=== PATIENT | male | born 1955 | race Two or more races ===

== ENCOUNTER 2017-07-16 19:02 | Emergency (ER) | payer MEDICAID ==
[~2017-07-16] VITALS: Ht 170.2 cm; Wt 72.1 kg
[2017-07-16 20:17] LABS: INR 1.01 (0.9-1.15); Partial Thromboplastin Time 27.1 sec (22.64-33.71)
[2017-07-16 20:35] LABS: Alanine Aminotransferase 24 U/L (16-61); Albumin 3.8 g/dL (3.4-5.0); Alkaline Phosphatase 97 U/L (45-117); Anion Gap 8 (5-15); Aspartate Aminotransferase 17 U/L (15-37); BUN/Creatinine Ratio 13.5; Bilirubin, Total 0.4 mg/dL (0.2-1.0); Blood Urea Nitrogen 12 mg/dL (7-18); Calcium 8.9 mg/dL (8.5-10.1); Carbon Dioxide 27 mmol/L (21-32); Chloride 105 mmol/L (98-107); GFR African American 112 mL/min; GFR Non-African American 92 mL/min; Glucose 95 mg/dL (74-106); Potassium 4.5 mmol/L (3.5-5.1); Sodium 140 mmol/L (136-145)
[2017-07-16 20:45] VITALS: BP 124/86
[2017-07-16 20:50] LABS: White Blood Cell 9.2 10^3/uL (4.4-10.8)
[2017-07-16 20:52] LABS: Basophils # (auto) 0 uL; Basophils % (auto) 0.4 % (0.0-2.0); Eosinophils # (auto) 0.2 uL; Eosinophils % (auto) 2.4 % (0.0-7.0); Hematocrit 52.5 % (41.0-53.0); Lymphocytes # (auto) 1.8 uL; Lymphocytes % (auto) 19.4 % (10.0-50.0); Mean Corpuscular Hemoglobin 31.5 pg (28.0-32.0); Mean Corpuscular Hgb Conc. 34.3 g/dL (32.0-36.0); Mean Corpuscular Volume 91.8 fL (80.0-100.0); Monocytes # (auto) 0.8 uL; Monocytes % (auto) 8.9 % (0.0-12.0); Neutrophils # (auto) 6.3 uL; Neutrophils % (auto) 68.9 % (37.0-80.0); Nucleated Red Blood Cells % 0.5 %; Platelet Count (auto) 223 10^3/uL (140-450); Red Blood Cells 5.72 10^6/uL (4.5-5.90); Red Cell Distribution Width 13.7 % (11.8-14.3)
== END 2017-07-17 00:20 | disposition home or self-care (01) ==
LOC: ER 19:02
DX: I10 Essential (primary) hypertension (principal); F17.210 Nicotine dependence, cigarettes, uncomplicated; Z01.818 Encounter for other preprocedural examination
CPT/HCPCS: 36415; 71046; 80053; 83735; 83880; 84484; 85025; 85610; 85730; 93005

== ENCOUNTER 2017-09-02 08:54 | Emergency (ER) | payer MEDICAID ==
[~2017-09-02] VITALS: Ht 170.2 cm; Wt 75.3 kg
[2017-09-02 09:43] LABS: Eosinophils # (auto) 0.1 uL; Eosinophils % (auto) 1.2 % (0.0-7.0); Monocytes # (auto) 0.7 uL
[2017-09-02 09:53] LABS: Basophils # (auto) 0.2 uL; Basophils % (auto) 1.8 % (0.0-2.0); Hematocrit 55.8 % (41.0-53.0); Hemoglobin 18.8 g/dL (13.5-17.5); Lymphocytes # (auto) 1.1 uL; Lymphocytes % (auto) 13.5 % (10.0-50.0); Mean Corpuscular Hemoglobin 31.6 pg (28.0-32.0); Mean Corpuscular Hgb Conc. 33.6 g/dL (32.0-36.0); Mean Corpuscular Volume 93.8 fL (80.0-100.0); Monocytes % (auto) 8.4 % (0.0-12.0); Neutrophils # (auto) 6.4 uL; Neutrophils % (auto) 75.1 % (37.0-80.0); Nucleated Red Blood Cells % 0.1 %; Platelet Count (auto) 230 10^3/uL (140-450); Red Blood Cells 5.95 10^6/uL (4.5-5.90); Red Cell Distribution Width 13.9 % (11.8-14.3); White Blood Cell 8.5 10^3/uL (4.4-10.8)
[2017-09-02 10:08] LABS: Albumin 4.1 g/dL (3.4-5.0); Anion Gap 5 (5-15); Blood Urea Nitrogen 18 mg/dL (7-18); Calcium 9.4 mg/dL (8.5-10.1); Carbon Dioxide 26 mmol/L (21-32); Chloride 107 mmol/L (98-107); Glucose 95 mg/dL (74-106); Magnesium 2.2 mg/dL (1.6-2.6); Potassium 4.5 mmol/L (3.5-5.1); Sodium 138 mmol/L (136-145)
[2017-09-02 10:09] LABS: Alanine Aminotransferase 35 U/L (16-61); Aspartate Aminotransferase 22 U/L (15-37); BUN/Creatinine Ratio 18.8; GFR African American 102 mL/min; GFR Non-African American 84 mL/min
[2017-09-02 10:15] LABS: Alkaline Phosphatase 92 U/L (45-117); Bilirubin, Total 0.6 mg/dL (0.2-1.0); Total Protein 8.3 g/dL (6.4-8.2)
[2017-09-02] MEDS ORDERED: MECLIZINE HCL 25 MG TAB PO ONE (11:30)
[2017-09-02] MEDS ORDERED: FUROSEMIDE 20 MG/2 ML VIAL IV ONE (11:30)
[2017-09-02] MEDS ORDERED: SODIUM CHLORIDE 0.9% 1,000 ML IV ONE (11:30)
[2017-09-02] MEDS ORDERED: LORazepam 2MG/ML-1ML VIAL IV ONE (11:30)
[2017-09-02 12:32] LABS: Alcohol, Urine < 3.0 mg/dL (0-5); Amphetamine Screen, Urine NEGATIVE (NEGATIVE); Barbiturate Scree,Urine NEGATIVE (NEGATIVE); Benzodiazephine Screen, Urine NEGATIVE (NEGATIVE); Cannabinoid Screen, Urine NEGATIVE (NEGATIVE); Cocaine Screen, Urine NEGATIVE (NEGATIVE); Opiate Scree,Urine NEGATIVE (NEGATIVE); Phencyclidine Screen, Urine NEGATIVE (NEGATIVE)
[2017-09-02 12:37] LABS: Urine Bacteria NONE SEEN /hpf (None Seen); Urine Blood Negative /uL (Negative); Urine Specific Gravity 1.009 (1.001-1.035); Urine WBC 1 /hpf (0 - 3)
[2017-09-02 14:02] VITALS: BP 106/70
== END 2017-09-02 14:05 | disposition home or self-care (01) ==
LOC: ER 08:54
DX: H81.13 Benign paroxysmal vertigo, bilateral (principal); R20.0 Anesthesia of skin; H54.0X55 Blindness right eye category 5, blindness left eye category 5; I10 Essential (primary) hypertension
CPT/HCPCS: 36415; 70450; 71046; 80053; 80307; 81001; 83735; 84484; 85025; 93005; 96361; 96374; 96375; 99285; J1940; J2060; J7030; J8597

== ENCOUNTER 2019-11-27 21:10 | Emergency (ER) | payer MEDICAID ==
[~2019-11-27] VITALS: Ht 172.7 cm; Wt 81.6 kg
[2019-11-27 22:10] LABS: Basophils # (auto) 0.1 10 ^3/uL (0-0.2); Basophils % (auto) 0.7 % (0.0-2.0); Eosinophils # (auto) 0.2 10 ^3/uL (0-0.8); Eosinophils % (auto) 1.3 % (0.0-7.0); Hematocrit 51.4 % (41.0-53.0); Lymphocytes # (auto) 1.1 10 ^3/uL (0.4-5.4); Lymphocytes % (auto) 9.1 % (10.0-50.0); Mean Corpuscular Hemoglobin 30.5 pg (28.0-32.0); Mean Corpuscular Hgb Conc. 33.1 g/dL (32.0-36.0); Mean Corpuscular Volume 92.2 fL (80.0-100.0); Monocytes # (auto) 1.5 10 ^3/uL (0-1.3); Monocytes % (auto) 12.2 % (0.0-12.0); Neutrophils # (auto) 9.5 10 ^3/uL (1.6-8.6); Neutrophils % (auto) 76.7 % (37.0-80.0); Platelet Count (auto) 214 10^3/uL (140-450); Red Blood Cells 5.58 10^6/uL (4.5-5.90); Red Cell Distribution Width 13.9 % (11.8-14.3); White Blood Cell 12.3 10^3/uL (4.4-10.8)
[2019-11-27 22:25] LABS: INR 1.04 (0.9-1.15); Partial Thromboplastin Time 27.9 sec (23.64-32.05)
[2019-11-27 22:26] LABS: Alanine Aminotransferase 43 U/L (16-61); Albumin 3.6 g/dL (3.4-5.0); Amylase 47 U/L (25-115); Anion Gap 6 (5-15); Aspartate Aminotransferase 23 U/L (15-37); BUN/Creatinine Ratio 13.4; Blood Urea Nitrogen 16 mg/dL (7-18); Calcium 8.5 mg/dL (8.5-10.1); Carbon Dioxide 26 mmol/L (21-32); Chloride 105 mmol/L (98-107); GFR African American 79 mL/min; GFR Non-African American 65 mL/min; Glucose 139 mg/dL (74-106); Lipase 81 U/L (73-393); Magnesium 2.3 mg/dL (1.6-2.6); Potassium 3.8 mmol/L (3.5-5.1); Sodium 137 mmol/L (136-145)
[2019-11-27 22:33] LABS: Alkaline Phosphatase 117 U/L (45-117); Bilirubin, Total 0.7 mg/dL (0.2-1.0); Total Protein 8.3 g/dL (6.4-8.2)
[2019-11-27 23:42] VITALS: BP 161/89
[2019-11-27 23:57] LABS: Urine Bacteria NONE SEEN /hpf (None Seen); Urine Blood Negative /uL (Negative); Urine Specific Gravity 1.006 (1.001-1.035); Urine WBC 1 /hpf (0 - 3)
[2019-11-28] MEDS ORDERED: KETOROLAC TROMETH 30 MG/ML 1ML VIAL IV ONE ×2 (00:45)
== END 2019-11-28 01:34 | disposition home or self-care (01) ==
LOC: ER 21:10
DX: K40.20 Bilateral inguinal hernia, without obstruction or gangrene, not specified as recurrent (principal); K57.30 Diverticulosis of large intestine without perforation or abscess without bleeding; I10 Essential (primary) hypertension
CPT/HCPCS: 36415; 71046; 74176; 80053; 81001; 82150; 83690; 83735; 84484; 85025; 85610; 85730; 93005; 96374; 99285; J1885

== ENCOUNTER 2019-11-28 16:30 | Inpatient (IN) | payer MEDICAID ==
[~2019-11-28] VITALS: Ht 165.1 cm; Wt 87.0 kg
[2019-11-28] MEDS ORDERED: cefTRIAXone 1GM/50ML D5W 50 ML IV ONE (19:45)
[2019-11-28] MEDS ORDERED: metroNIDAZOLE 500MG/100ML 100 ML IV ONE (19:45)
[2019-11-28 20:39] LABS: Basophils # (auto) 0 10 ^3/uL (0-0.2); Basophils % (auto) 0.4 % (0.0-2.0); Eosinophils # (auto) 0.1 10 ^3/uL (0-0.8); Hematocrit 51.8 % (41.0-53.0); Hemoglobin 17.1 g/dL (13.5-17.5); Lymphocytes # (auto) 1.6 10 ^3/uL (0.4-5.4); Mean Corpuscular Hemoglobin 30.3 pg (28.0-32.0); Mean Corpuscular Volume 91.7 fL (80.0-100.0); Monocytes # (auto) 1.4 10 ^3/uL (0-1.3); Monocytes % (auto) 12.2 % (0.0-12.0); Neutrophils # (auto) 8.2 10 ^3/uL (1.6-8.6); Neutrophils % (auto) 72.4 % (37.0-80.0); Nucleated Red Blood Cells % 0.1 %; Platelet Count (auto) 238 10^3/uL (140-450); Red Blood Cells 5.64 10^6/uL (4.5-5.90); Red Cell Distribution Width 13.8 % (11.8-14.3); White Blood Cell 11.4 10^3/uL (4.4-10.8)
[2019-11-28 20:47] LABS: Albumin 3.9 g/dL (3.4-5.0); Calcium 9.2 mg/dL (8.5-10.1); Potassium 3.7 mmol/L (3.5-5.1)
[2019-11-28 20:50] LABS: BUN/Creatinine Ratio 18.5; Bilirubin, Total 0.6 mg/dL (0.2-1.0); Total Protein 8.5 g/dL (6.4-8.2)
[2019-11-28] MEDS ORDERED: ONDANSETRON HCL 4 MG/2 ML VIAL IV ONE (23:45)
[2019-11-28] MEDS ORDERED: MORPHINE SULF INJ 2 MG/ML SYRINGE 1ML IV ONE (23:45)
[2019-11-29] MEDS ORDERED: ONDANSETRON HCL 4 MG/2 ML VIAL IV PRN (00:45)
[2019-11-29] MEDS: SODIUM CHLORIDE 0.9% 1,000 ML IV SCH ×2 (00:52→17:49)
[2019-11-29 01:33] LABS: INR 1.06 (0.9-1.15); Partial Thromboplastin Time 29.4 sec (23.64-32.05)
--- NOTE | 2019-11-29 01:58 | NUR ---
Received report from CIELO Santiago.
--- NOTE | 2019-11-29 02:38 | NUR ---
MS admit from ER DORI FONTAINE admitted to tele/MS after SBAR received. Patient oriented to Melanie Gee, primary RN, unit, room, bed, and unit policies regarding patient care and visiting hours. Patient weighed by bedscale and encouraged to call if they need something. All questions and concerns addressed, patient verbalized understanding.
[2019-11-29] MEDS: MORPHINE SULFATE 4 MG/ML SYR/VIAL IV PRN ×3 (03:09→22:33)
[2019-11-29 05:00] VITALS: BP 144/7
[2019-11-29] MEDS: metroNIDAZOLE 500MG/100ML 100 ML IV SCH ×3 (06:00→22:33)
[2019-11-29 06:08] VITALS: BP 144/87
--- NOTE | 2019-11-29 07:30 | NUR ---
Opening Note Received report from assistant casino shift manager RN. Patient is resting in bed, easy to wake by calling name. Patient is on 2L NC, respirations even and unlabored. Patient denies pain at this time. Reviewed plan of care with patient, patient verbalized understanding. Bed in low and locked position, call light within reach. Will continue to monitor Q1 hour and PRN.
[2019-11-29 08:20] VITALS: BP 152/84
--- NOTE | 2019-11-29 09:02 | NUR ---
patient taken down to radiology
--- NOTE | 2019-11-29 10:00 | NUR ---
Patient back to room
[2019-11-29] MEDS: cefTRIAXone 1GM/50ML D5W 50 ML IV SCH (11:13)
[2019-11-29] MEDS: PANTOPRAZOLE 40 MG/10 ML VIAL INJ IV SCH (11:13)
--- NOTE | 2019-11-29 11:15 | NUR ---
Pain Patient complains of abdominal pain 8/10 and is requesting pain medications. Will medicate per orders. Will continue to monitor Q1 hour and PRN.
--- NOTE | 2019-11-29 11:45 | NUR ---
Pain reassessment Patient states abdominal pain is now 5/10. Patient states he is comfortable at this time. Will continue to monitor Q1 hour and PRN.
--- NOTE | 2019-11-29 12:02 | NUR ---
patient taken down to MRI
[2019-11-29 12:13] VITALS: BP 154/91
--- NOTE | 2019-11-29 12:15 | NUR ---
patient back to room
--- NOTE | 2019-11-29 13:14 | NUR ---
Dr. Lorenzo at bedside Discussing plan of care with patient and this RN. Will continue to monitor Q1 hour and PRN.
[2019-11-29 16:46] VITALS: BP 116/73
--- NOTE | 2019-11-29 18:40 | NUR ---
urine collected and sent to lab
[2019-11-29 18:56] LABS: Urine Bacteria NONE SEEN /hpf (None Seen); Urine Blood Negative /uL (Negative); Urine Mucus FEW (None Seen); Urine Specific Gravity 1.017 (1.001-1.035); Urine WBC <1 /hpf (0 - 3)
--- NOTE | 2019-11-29 19:11 | NUR ---
Opening Shift Note Assumed care of patient after receiving report from day RN. Patient awake and alert with no S/S of distress/SOB or pain. Call light within reach, bed in lowest position x2 side rails, HOB semi fowlers. Instructed on POC and to call for assist PRN, will continue to monitor for changes Q1hr and PRN.
--- NOTE | 2019-11-29 19:12 | NUR ---
Closing Note Report given to batch and furnace operator RN. No signs or symptoms of distress noted at this time.
[2019-11-29 22:00] VITALS: BP 137/80
[2019-11-30] MEDS: SODIUM CHLORIDE 0.9% 1,000 ML IV SCH ×2 (03:25→16:45)
[2019-11-30 05:00] VITALS: BP 127/99
[2019-11-30] MEDS: metroNIDAZOLE 500MG/100ML 100 ML IV SCH ×3 (06:31→21:14)
--- NOTE | 2019-11-30 06:32 | NUR ---
IV insertion IV access obtained, via clean sterile technique by inserting 22 gauge catheter at right forearm after a totoal of 3 attempt(s). IV secured properly. No trauma to site. Patient tolerated well.
--- NOTE | 2019-11-30 06:33 | NUR ---
IV removal IV DC'd with clean sterile technique, catheter fully intact. Pressure dressing applied to site. Patient tolerated well.
[2019-11-30 06:40] LABS: Basophils # (auto) 0.1 10 ^3/uL (0-0.2); Basophils % (auto) 0.6 % (0.0-2.0); Eosinophils # (auto) 0.1 10 ^3/uL (0-0.8); Eosinophils % (auto) 1.3 % (0.0-7.0); Hematocrit 47.6 % (41.0-53.0); Hemoglobin 16.3 g/dL (13.5-17.5); Lymphocytes # (auto) 1.2 10 ^3/uL (0.4-5.4); Lymphocytes % (auto) 11.6 % (10.0-50.0); Mean Corpuscular Hemoglobin 31.2 pg (28.0-32.0); Mean Corpuscular Hgb Conc. 34.2 g/dL (32.0-36.0); Mean Corpuscular Volume 91.1 fL (80.0-100.0); Monocytes # (auto) 1.2 10 ^3/uL (0-1.3); Monocytes % (auto) 11.1 % (0.0-12.0); Neutrophils # (auto) 7.9 10 ^3/uL (1.6-8.6); Neutrophils % (auto) 75.4 % (37.0-80.0); Nucleated Red Blood Cells % 0.1 %; Platelet Count (auto) 237 10^3/uL (140-450); Red Blood Cells 5.22 10^6/uL (4.5-5.90); Red Cell Distribution Width 13.8 % (11.8-14.3); White Blood Cell 10.4 10^3/uL (4.4-10.8)
[2019-11-30 06:43] LABS: Calcium 9.2 mg/dL (8.5-10.1)
[2019-11-30 06:45] LABS: BUN/Creatinine Ratio 19.3
--- NOTE | 2019-11-30 07:32 | NUR ---
Opening Note Assumed pt care from NOC RN. Pt is a/ox4 with no s/s of distress or SOB. Pt is currently laying in bed with no complaints at this time. Pt is currently NPO and is aware of scheduled procedure today. Discussed POC with pt; pt verbalized understanding. Safety measures maintained with call light within reach, bed in lowest position and side rails up. Will continue to monitor for changes.
[2019-11-30] MEDS: PANTOPRAZOLE 40 MG/10 ML VIAL INJ IV SCH (08:54)
[2019-11-30] MEDS: cefTRIAXone 1GM/50ML D5W 50 ML IV SCH (08:54)
[2019-11-30 09:00] VITALS: BP 138/78
[2019-11-30] MEDS: MORPHINE SULFATE 4 MG/ML SYR/VIAL IV PRN ×3 (11:00→23:35)
[2019-11-30 13:00] VITALS: BP 129/74
--- NOTE | 2019-11-30 13:21 | NUR ---
Patient Off Unit Patient taken to pre-op via stretcher. Patient A&Ox4 with no s/s of distress or shortness of breath. All questions were answered to staff in pre-op.
--- NOTE | 2019-11-30 13:53 | NUR ---
Dr Lorenzo at Station Informed pt is down in OR. No new orders at this time.
[2019-11-30] MEDS ORDERED: NEOSTIGMINE 1 MG/ML INJ (10mg/10ML VIAL) IV ONE (14:47)
[2019-11-30] MEDS ORDERED: MIDAZOLAM HCL 1MG/1ML-2 ML VIAL ONE (14:50)
[2019-11-30] MEDS ORDERED: fentaNYL CITRATE 100 MCG/2 ML VL ONE (14:50)
[2019-11-30] MEDS ORDERED: MEPERIDINE HCL (50 MG/ML) 1 ML VIAL ONE (14:50)
[2019-11-30] MEDS ORDERED: GLYCOPYRROLATE 0.2 MG/ML 1ML VIAL IV ONE (15:00)
[2019-11-30] MEDS ORDERED: DexAMETHasone SOD PHOS 10MG/1ML VIAL INJ ONE (15:05)
[2019-11-30] MEDS ORDERED: PROPOFOL 10 MG/ML 20 ML IV ONE (15:05)
[2019-11-30] MEDS ORDERED: ROCURONIUM 10MG/ML 10ML VIAL IV ONE (15:07)
[2019-11-30] MEDS ORDERED: ONDANSETRON HCL 4 MG/2 ML VIAL IV PRN (15:30)
[2019-11-30] MEDS ORDERED: MIDAZOLAM HCL 1MG/1ML-2 ML VIAL IV PRN (15:30)
[2019-11-30] MEDS ORDERED: HYDROmorphone HCL 2 MG/ML VL IV PRN (15:30)
[2019-11-30] MEDS ORDERED: LABETALOL HCL 5 MG/ML 4ML SYRINGE IV PRN (15:30)
[2019-11-30] MEDS ORDERED: ePHEDrine SULFATE 50 MG/ML AMP IV PRN (15:30)
[2019-11-30] MEDS ORDERED: MORPHINE SULFATE 4 MG/ML SYR/VIAL IV PRN (15:30)
[2019-11-30 17:05] VITALS: BP 174/101
--- NOTE | 2019-11-30 17:05 | NUR ---
Pt Arrived on Unit Pt arrived back on unit from OR. Pt is a/ox4 with no s/s of distress or SOB. 3 incisions present, 2 midline and LEO drain to RLQ. Safety measures maintained with call light within reach, bed in lowest position and side rails up. Will continue to monitor.
[2019-11-30] MEDS: hydrALAZINE HCL 20 MG/ML VL IV PRN ×2 (17:16→23:35)
--- NOTE | 2019-11-30 17:23 | NUR ---
Elevated BP Elevated BP at 174/101 upon arrival. Provided PRN BP meds. Will continue to monitor and reassess. Addendum: 11/30/19 at 1819 by WING LINDO RN RN BP Reassessed, currently HR 90 with BP of 137/86. Will continue to monitor.
[2019-11-30 18:18] VITALS: BP 137/86
--- NOTE | 2019-11-30 19:18 | NUR ---
LEO Malone 15mL of serous-sanguinous drainage drained.
--- NOTE | 2019-11-30 20:15 | NUR ---
Opening Shift Note Assumed care of patient, awake and alert, oriented x 4, follows directions. On oxygen at 3L via NC with even and unlabored respirations, no S/S of distress/SOB. Patient is s/p laparoscopic cholecystectomy with medial abd incision x 2, dressing clean, dry, and intact. LEO drain to right abd, dressing clean, dry and intact, LEO bulb to suction, noted minimal sanguineous drainage. Hypoactive bowel sounds, patient denies passing gas, patient is burping. Patient turns independently in bed. Urinal within reach. PIV right hand 20g intact and patent infusing IVF per orders. Bed in lowest locked position with side rails up x 2 and call light within reach. Instructed on POC and to call for assist PRN, will continue to monitor for changes Q1hr and PRN.
--- NOTE | 2019-11-30 20:20 | NUR ---
IV removal IV DC'd with clean sterile technique, catheter fully intact. Pressure dressing applied to site. Patient tolerated well. NOTE: IV to right forearm slightly red, tender and leaking.
[2019-11-30 22:00] VITALS: BP 157/84
[2019-12-01 05:00] VITALS: BP 143/92
[2019-12-01] MEDS: SODIUM CHLORIDE 0.9% 1,000 ML IV SCH (05:18)
[2019-12-01] MEDS: metroNIDAZOLE 500MG/100ML 100 ML IV SCH ×3 (05:31→21:36)
--- NOTE | 2019-12-01 05:40 | NUR ---
Ambulation patient ambulated to hallway with steady gait and tolerated well. encouraged patient to continue to ambulate every 4 hours through out the day, patient verbalized understanding.
[2019-12-01 05:53] LABS: Basophils # (auto) 0 10 ^3/uL (0-0.2); Eosinophils # (auto) 0 10 ^3/uL (0-0.8); Hematocrit 47.6 % (41.0-53.0); Hemoglobin 15.7 g/dL (13.5-17.5); Lymphocytes # (auto) 0.5 10 ^3/uL (0.4-5.4); Lymphocytes % (auto) 3.4 % (10.0-50.0); Mean Corpuscular Hemoglobin 30.5 pg (28.0-32.0); Mean Corpuscular Hgb Conc. 32.9 g/dL (32.0-36.0); Mean Corpuscular Volume 92.7 fL (80.0-100.0); Monocytes # (auto) 1.6 10 ^3/uL (0-1.3); Monocytes % (auto) 9.8 % (0.0-12.0); Neutrophils # (auto) 13.8 10 ^3/uL (1.6-8.6); Neutrophils % (auto) 86.8 % (37.0-80.0); Platelet Count (auto) 245 10^3/uL (140-450); Red Blood Cells 5.13 10^6/uL (4.5-5.90); Red Cell Distribution Width 13.6 % (11.8-14.3); White Blood Cell 15.9 10^3/uL (4.4-10.8)
[2019-12-01] MEDS: MORPHINE SULFATE 4 MG/ML SYR/VIAL IV PRN (05:56)
--- NOTE | 2019-12-01 06:00 | NUR ---
LEO drain output 20mL serosanguineous drainage. LEO bulb to suction.
[2019-12-01 06:11] LABS: BUN/Creatinine Ratio 16.7; Calcium 8.6 mg/dL (8.5-10.1); Potassium 4.2 mmol/L (3.5-5.1)
--- NOTE | 2019-12-01 07:20 | NUR ---
Closing Note patient resting in bed with even and unlabored respirations, no s/s of distress. abd binder on. hoda bulb to suction. IVF infusing per orders. Bed in lowest locked position with side rails up x 2 and call light within reach. Endorsed care to day shift RN Susan.
--- NOTE | 2019-12-01 07:54 | NUR ---
OPENING SHIFT NOTE: PATIENT RESTING IN BED, ASLEEP. EASILY AWOKE. A/OX4, NO C/O PAIN. UPDATED ON PLAN OF CARE. ABDOMINAL BINDER IN PLACE. BOWEL SOUNDS ACTIVE. LEO NOTED TO HAVE APPROX 10ML SANG. FLUID. RESPIRATIONS EVEN AND UNLABORED. CALL LIGHT WITHIN REACH, FALL PRECAUTIONS IN PLACE. WILL CONTINUE TO MONITOR.
[2019-12-01 09:00] VITALS: BP 145/79
[2019-12-01] MEDS: cefTRIAXone 1GM/50ML D5W 50 ML IV SCH (09:55)
[2019-12-01] MEDS: PANTOPRAZOLE 40 MG/10 ML VIAL INJ IV SCH (09:55)
--- NOTE | 2019-12-01 11:35 | NUR ---
MD BAILEY ROUNDING.
[2019-12-01 11:49] LABS: Bilirubin, Direct 1.4 mg/dL (0-0.2)
--- NOTE | 2019-12-01 11:49 | NUR ---
CALL FROM FAMILY: PASSWORD RECEIVED. UPDATED ON PLAN OF CARE.
--- NOTE | 2019-12-01 12:27 | NUR ---
Nutrition Assessment Notes Please refer to link for full assessment notes. Est Energy needs: 0322-2340 kcals (14-18 kcal/kgBW) Est Protein needs: 79-98 gms/day (0.8-1.0 gm/kgBW) Will continue to monitor and reassess prn. Addendum: 12/01/19 at [address] Amended: Links added.
[2019-12-01 12:51] VITALS: BP 146/85
[2019-12-01] MEDS: HYDROcodone-ACET 5/325MG TAB PO PRN ×3 (13:08→23:36)
--- NOTE | 2019-12-01 14:24 | NUR ---
PATIENT REPORTS PASSING GAS AND WAS NOTED AMBULATING AROUND THE UNIT WITH IV POLE, STEADY GAIT.
[2019-12-01 17:00] VITALS: BP 124/76
--- NOTE | 2019-12-01 18:58 | NUR ---
CARE ENDORSED TO NOC RN.
--- NOTE | 2019-12-01 19:55 | NUR ---
Opening Shift Note Assumed care of patient, awake and alert, oriented x 4, follows directions. On room air with even and unlabored respirations, no S/S of distress/SOB. Patient is s/p laparoscopic cholecystectomy with medial abd incision x 2, dressing clean, dry, and intact. LEO drain to right abd, dressing clean, dry and intact, LEO bulb to suction,with sanguineous drainage. active bowel sounds, patient reports passing gas. Patient turns independently in bed. Patient ambulated during day and tolerated well. Urinal within reach. PIV left hand 20g intact and patent infusing IVF per orders. Patient reports 5/10 abd pain, patient reports pain is tolerable at this time, educated on pain management, patient verbalized understanding. Bed in lowest locked position with side rails up x 2 and call light within reach. Instructed on POC and to call for assist PRN, will continue to monitor for changes Q1hr and PRN.
[2019-12-01] MEDS: DOCUSATE SOD 100 MG CAP PO SCH (21:36)
[2019-12-01 21:37] VITALS: BP 140/90
--- NOTE | 2019-12-01 21:45 | NUR ---
LEO drain output 30mL sanguineous drainage. LEO bulb to suction.
[2019-12-02 05:00] VITALS: BP 147/74
--- NOTE | 2019-12-02 05:00 | NUR ---
Paged Jp ECOSYSTEM ECOLOGY PROFESSOR RE: covid exposure patient in room 217a positive covid, awaiting call back.
--- NOTE | 2019-12-02 05:30 | NUR ---
Ambulation patient ambulated in hallway with steady gait and tolerated well. encouraged patient to continue to ambulate every 4 hours through out the day, patient verbalized understanding.
[2019-12-02] MEDS: metroNIDAZOLE 500MG/100ML 100 ML IV SCH ×2 (05:32→13:46)
[2019-12-02] MEDS: HYDROcodone-ACET 5/325MG TAB PO PRN ×2 (05:32→12:13)
--- NOTE | 2019-12-02 05:32 | NUR ---
moved to room 201 with all personal belongings.
--- NOTE | 2019-12-02 05:40 | NUR ---
LEO drain output 10mL sanguineous drainage. LEO bulb to suction.
[2019-12-02 06:00] LABS: Basophils # (auto) 0.1 10 ^3/uL (0-0.2); Basophils % (auto) 0.6 % (0.0-2.0); Eosinophils # (auto) 0.1 10 ^3/uL (0-0.8); Eosinophils % (auto) 0.7 % (0.0-7.0); Hematocrit 45.9 % (41.0-53.0); Hemoglobin 15.5 g/dL (13.5-17.5); Lymphocytes % (auto) 8.8 % (10.0-50.0); Mean Corpuscular Hemoglobin 30.9 pg (28.0-32.0); Mean Corpuscular Hgb Conc. 33.7 g/dL (32.0-36.0); Mean Corpuscular Volume 91.8 fL (80.0-100.0); Monocytes # (auto) 1.5 10 ^3/uL (0-1.3); Monocytes % (auto) 12.4 % (0.0-12.0); Neutrophils # (auto) 9.3 10 ^3/uL (1.6-8.6); Neutrophils % (auto) 77.5 % (37.0-80.0); Nucleated Red Blood Cells % 0.4 %; Platelet Count (auto) 229 10^3/uL (140-450); Red Blood Cells 5.01 10^6/uL (4.5-5.90); Red Cell Distribution Width 13.9 % (11.8-14.3); White Blood Cell 11.9 10^3/uL (4.4-10.8)
[2019-12-02 06:18] LABS: Albumin 3.2 g/dL (3.4-5.0); Calcium 8.6 mg/dL (8.5-10.1); Potassium 3.5 mmol/L (3.5-5.1)
[2019-12-02 06:23] LABS: BUN/Creatinine Ratio 13.5; Bilirubin, Total 0.9 mg/dL (0.2-1.0); Total Protein 7.5 g/dL (6.4-8.2)
--- NOTE | 2019-12-02 06:25 | NUR ---
Received call back from Jp PANDEY new order received for covid test to be sent out. read back and verified, will carry out order and continue care.
--- NOTE | 2019-12-02 07:02 | NUR ---
Closing Note patient resting in bed with even and unlabored respirations, no s/s of distress. abd binder on. hoda bulb to suction. Bed in lowest locked position with side rails up x 2 and call light within reach. Endorsed care to day shift CIELO Davis.
--- NOTE | 2019-12-02 07:31 | NUR ---
covid swab walked to lab
--- NOTE | 2019-12-02 08:20 | NUR ---
OPENING SHIFT NOTE: PATIENT RESTING IN BED, ASLEEP. EASILY AWOKE. A/OX4, NO C/O PAIN. UPDATED ON PLAN OF CARE. ABDOMINAL BINDER IN PLACE. BOWEL SOUNDS ACTIVE. LEO EMPTIED. RESPIRATIONS EVEN AND UNLABORED. CALL LIGHT WITHIN REACH, FALL PRECAUTIONS IN PLACE. WILL CONTINUE TO MONITOR.
[2019-12-02 08:59] VITALS: BP 154/94
--- NOTE | 2019-12-02 09:04 | NUR ---
PATIENT UP AMBULATING IN UNIT.
[2019-12-02] MEDS: cefTRIAXone 1GM/50ML D5W 50 ML IV SCH (09:06)
[2019-12-02] MEDS ORDERED: PANT40T PO (09:50)
[2019-12-02] MEDS ORDERED: AMLO5TAB15 PO (09:50)
[2019-12-02] MEDS: DOCUSATE SOD 100 MG CAP PO SCH (09:56)
[2019-12-02] MEDS ORDERED: PANTOPRAZOLE 40 MG TAB PO SCH (10:00)
[2019-12-02 10:46] VITALS: BP 148/104
--- NOTE | 2019-12-02 11:28 | NUR ---
FAMILY CONTACTED: PATIENT GOING TO HAVE A RIDE HOME AT 14:30
[2019-12-02 12:46] VITALS: BP 164/96
[2019-12-02] MEDS: hydrALAZINE HCL 20 MG/ML VL IV PRN (13:23)
--- NOTE | 2019-12-02 14:15 | NUR ---
BP RE-ASSESSED AFTER IV HYDRALAZINE. LAST BP 138/89MMHG.
--- NOTE | 2019-12-02 14:48 | NUR ---
DISCHARGE: PATIENT DISCHARGED HOME. ALL EDUCATION MATERIALS GIVEN, PATIENT VERBALIZED UNDERSTANDING IMPORTANCE OF FOLLOW UP APPOINTMENT, AND RETURNED DEMONSTRATION OF DRAIN MANAGEMENT. PRESCRIPTION PICKED UP FROM [facility]. IV REMOVED MANUAL PRESSURE APPLIED. PATIENT LEFT WITH ALL BELONGINGS, TAKEN DOWN TO PRIVATE AUTO WITHOUT INCIDENCE.
== END 2019-12-02 14:48 | disposition home or self-care (01) | DRG 263 ==
LOC: ER 16:30 → EDBD 16:30 → OVERFLOW 16:31 → CENTRAL 11-29 02:38
PROVIDERS: ADMIT Nurse Practitioner; ATTEND Internal Medicine
PROC: 0FT44ZZ Resection of Gallbladder, Percutaneous Endoscopic Approach (ICD-10-PCS; principal; 2019-11-30 14:45)
DX: K80.00 Calculus of gallbladder with acute cholecystitis without obstruction (principal); E66.01 Morbid (severe) obesity due to excess calories; R65.10 Systemic inflammatory response syndrome (SIRS) of non-infectious origin without acute organ dysfunction; K40.90 Unilateral inguinal hernia, without obstruction or gangrene, not specified as recurrent; I10 Essential (primary) hypertension; K82.8 Other specified diseases of gallbladder; Z03.818 Encounter for observation for suspected exposure to other biological agents ruled out; Z68.35 Body mass index [BMI] 35.0-35.9, adult
CPT/HCPCS: 36415; 71045; 74181; 76705; 76870; 78226; 80048; 80053; 81001; 82247; 82248; 83690; 84443; 85025; 85610; 85730; 86850; 86870; 86900; 86901; 87040; 96365; 96375; 96376; C9113; G0378; J0696; J1100; J2250; J2405; J2704; J3490

== ENCOUNTER → 2020-01-07 | Emergency (ER) | payer MEDICAID ==
[~2020-01-07] VITALS: Ht 167.6 cm; Wt 80.5 kg
[~2020-01-07] MED LIST: ACET-6 PO; AMLO5TAB15 PO; CLO01T PO; GABA300C10 PO; IBUP800T24 PO; KETOROLAC TROMETH 30 MG/ML 1ML VIAL IV ONE; LOS25T PO; MECLIZINE HCL 25 MG TAB PO ONE; METH500T22 PO; PANT40T PO
[2020-01-07 10:16] LABS: Basophils # (auto) 0 10 ^3/uL (0-0.2); Basophils % (auto) 0.6 % (0.0-2.0); Eosinophils # (auto) 0.2 10 ^3/uL (0-0.8); Eosinophils % (auto) 2.5 % (0.0-7.0); Hematocrit 46.7 % (41.0-53.0); Hemoglobin 15.6 g/dL (13.5-17.5); Lymphocytes # (auto) 1.6 10 ^3/uL (0.4-5.4); Lymphocytes % (auto) 20.9 % (10.0-50.0); Mean Corpuscular Hemoglobin 30.8 pg (28.0-32.0); Mean Corpuscular Hgb Conc. 33.3 g/dL (32.0-36.0); Mean Corpuscular Volume 92.4 fL (80.0-100.0); Monocytes # (auto) 0.8 10 ^3/uL (0-1.3); Monocytes % (auto) 10.4 % (0.0-12.0); Neutrophils # (auto) 4.9 10 ^3/uL (1.6-8.6); Neutrophils % (auto) 65.6 % (37.0-80.0); Nucleated Red Blood Cells % 0.1 %; Platelet Count (auto) 249 10^3/uL (140-450); Red Blood Cells 5.05 10^6/uL (4.5-5.90); Red Cell Distribution Width 14.4 % (11.8-14.3); White Blood Cell 7.4 10^3/uL (4.4-10.8)
[2020-01-07 10:32] LABS: Albumin 3.8 g/dL (3.4-5.0); Anion Gap 5 (5-15); Blood Urea Nitrogen 34 mg/dL (7-18); Calcium 9.7 mg/dL (8.5-10.1); Carbon Dioxide 25 mmol/L (21-32); Chloride 111 mmol/L (98-107); Glucose 109 mg/dL (74-106); Sodium 141 mmol/L (136-145)
[2020-01-07 10:37] LABS: Alanine Aminotransferase 23 U/L (16-61); Alkaline Phosphatase 102 U/L (45-117); Aspartate Aminotransferase 20 U/L (15-37); BUN/Creatinine Ratio 30.4; Bilirubin, Total 0.5 mg/dL (0.2-1.0); GFR African American 85 mL/min; GFR Non-African American 70 mL/min; Total Protein 8.1 g/dL (6.4-8.2)
[2020-01-07 13:37] LABS: INR 0.99 (0.9-1.15); Partial Thromboplastin Time 25.4 sec (23.0-31.2)
[2020-01-07 16:30] VITALS: BP 146/83
== END | disposition home or self-care (01) ==
LOC: ER 09:23
DX: H81.12 Benign paroxysmal vertigo, left ear (principal); I10 Essential (primary) hypertension; E11.42 Type 2 diabetes mellitus with diabetic polyneuropathy
CPT/HCPCS: 36415; 71046; 80053; 82962; 84484; 85025; 85610; 85730; 93005; 96374; 99285; J1885; J8597

== ENCOUNTER 2021-02-28 18:29 | Inpatient (IN) | payer MEDICARE, MEDICAID ==
[~2021-02-28] VITALS: Ht 170.2 cm; Wt 77.5 kg
[~2021-02-28 18:29] MED LIST changes: +AMLO-489 PO; -AMLO5TAB15 PO; -IBUP800T24 PO; +IBUP800T26 PO; -KETOROLAC TROMETH 30 MG/ML 1ML VIAL IV ONE; -MECLIZINE HCL 25 MG TAB PO ONE
[2021-02-28 19:19] LABS: Basophils # (auto) 0.1 10 ^3/uL (0-0.2); Basophils % (auto) 0.4 % (0.0-2.0); Eosinophils # (auto) 0 10 ^3/uL (0-0.8); Lymphocytes # (auto) 1.8 10 ^3/uL (0.4-5.4); Nucleated Red Blood Cells % 0.2 %
[2021-02-28 19:23] LABS: Eosinophils % (auto) 0.2 % (0.0-7.0); Hematocrit 54.6 % (41.0-53.0); Hemoglobin 18.8 g/dL (13.5-17.5); Lymphocytes % (auto) 14.5 % (10.0-50.0); Mean Corpuscular Hemoglobin 32.7 pg (28.0-32.0); Mean Corpuscular Hgb Conc. 34.4 g/dL (32.0-36.0); Monocytes # (auto) 1.5 10 ^3/uL (0-1.3); Monocytes % (auto) 11.7 % (0.0-12.0); Neutrophils # (auto) 9.1 10 ^3/uL (1.6-8.6); Neutrophils % (auto) 73.2 % (37.0-80.0); Red Blood Cells 5.75 10^6/uL (4.5-5.90); White Blood Cell 12.4 10^3/uL (4.4-10.8)
[2021-02-28 19:27] LABS: Anion Gap 6 (5-15); Blood Urea Nitrogen 17 mg/dL (7-18); Carbon Dioxide 29 mmol/L (21-32); Chloride 105 mmol/L (98-107); Glucose 175 mg/dL (74-106); Magnesium 2.2 mg/dL (1.6-2.6); Sodium 140 mmol/L (136-145)
[2021-02-28 19:30] LABS: Lactic Acid w/Reflex 2.2 mmol/L (0.4-2.0)
[2021-02-28 19:42] LABS: Alanine Aminotransferase 33 U/L (16-61); Alkaline Phosphatase 107 U/L (45-117); Aspartate Aminotransferase 17 U/L (15-37); BUN/Creatinine Ratio 14.4; Bilirubin, Total 0.5 mg/dL (0.2-1.0); GFR African American 80 mL/min; GFR Non-African American 66 mL/min; Total Protein 8.2 g/dL (6.4-8.2)
[2021-02-28 20:07] LABS: Urine Bacteria NONE SEEN /hpf (None Seen); Urine Blood Negative /uL (Negative); Urine Mucus FEW (None Seen); Urine Specific Gravity 1.015 (1.001-1.035); Urine WBC <1 /hpf (0 - 3)
[2021-02-28] MEDS ORDERED: IOHEXOL 350 MG/ML 100ML IJ ONE (21:23)
[2021-02-28] MEDS ORDERED: SODIUM CHLORIDE 0.9% 1,000 ML IV ONE (22:45)
[2021-02-28] MEDS ORDERED: HEPARIN SODIUM (PORCINE) 5000 UNITS/ML 1ML VIAL IV ONE (23:45)
[2021-02-28] MEDS ORDERED: HEPARIN DRIP/D5W 100UNITS/ML 250 ML IV SCH (23:45)
[2021-03-01] MEDS ORDERED: HEPARIN SODIUM (PORCINE) 5000 UNITS/ML 1ML VIAL ONE ×2 (00:33→00:35)
[2021-03-01 02:11] LABS: INR 1.16 (0.9-1.15)
[2021-03-01] MEDS ORDERED: HYDROcodone-ACET 5/325MG TAB PO PRN (03:45)
[2021-03-01] MEDS ORDERED: ACETAMINOPHEN 325 MG TAB PO PRN (03:45)
[2021-03-01] MEDS ORDERED: ONDANSETRON HCL 4 MG/2 ML VIAL IV PRN (03:45)
[2021-03-01] MEDS ORDERED: MORPHINE SULFATE INJECTION 2 MG/ML SYRG IV PRN (03:45)
[2021-03-01] MEDS ORDERED: hydrALAZINE HCL 20 MG/ML VL IV PRN (03:45)
[2021-03-01] MEDS ORDERED: NITROGLYCERIN 0.4 MG SL TAB SL PRN (03:45)
[2021-03-01] MEDS ORDERED: MORPHINE SULFATE 4 MG/ML SYR/VIAL IV PRN (03:45)
[2021-03-01 04:09] LABS: INR 1.05 (0.9-1.15); Partial Thromboplastin Time 28.8 sec (23.6-33.0)
[2021-03-01] MEDS: SODIUM CHLORIDE 0.9% 1,000 ML IV SCH ×2 (05:11→20:25)
[2021-03-01 06:18] LABS: Albumin 2.9 g/dL (3.4-5.0); Potassium 3.8 mmol/L (3.5-5.1)
[2021-03-01 06:20] LABS: BUN/Creatinine Ratio 25.9
[2021-03-01 06:22] LABS: Bilirubin, Total 0.4 mg/dL (0.2-1.0); Total Protein 6.5 g/dL (6.4-8.2)
[2021-03-01 06:26] LABS: Hemoglobin 16.4 g/dL (13.5-17.5); Mean Corpuscular Hemoglobin 33.2 pg (28.0-32.0); Mean Corpuscular Hgb Conc. 34.9 g/dL (32.0-36.0); Red Blood Cells 4.95 10^6/uL (4.5-5.90); White Blood Cell 12.2 10^3/uL (4.4-10.8)
[2021-03-01 06:27] LABS: Red Cell Distribution Width 13.7 % (11.8-14.3)
[2021-03-01 06:43] LABS: Basophils % (manual) 0 (0.0-2.0); Blast Cells 0; Eosinophils % (manual) 0 (0-7); Metamyelocytes % 0; Myelocytes % 0; Promyelocytes % 0; Reactive Lymphocytes 0
[2021-03-01 08:07] LABS: Band Neutrophils % (manual) 1; Lymphocytes % (manual) 17 (10.0-50.0); Monocytes % (manual) 11 (0-12)
[2021-03-01] MEDS ORDERED: METF-869 PO (09:36)
[2021-03-01] MEDS ORDERED: ATOR20TA50 PO (09:38)
[2021-03-01] MEDS ORDERED: TRAM50TA2 PO (09:38)
[2021-03-01] MEDS: cefTRIAXone 1GM/50ML D5W 50 ML IV SCH (09:59)
[2021-03-01] MEDS ORDERED: ENOXAPARIN SOD 40 MG/0.4 ML SYRINGE SC SCH (10:00)
[2021-03-01] MEDS: FAMOTIDINE (10MG/ML) 2ML VL IV SCH ×2 (10:23→22:00)
[2021-03-01 18:10] VITALS: BP 157/103
[2021-03-01 22:00] VITALS: BP 127/88
[2021-03-01] MEDS: ENOXAPARIN SOD 80 MG/0.8ML SYRINGE SC SCH (22:00)
[2021-03-02 05:00] VITALS: BP 157/87
[2021-03-02 05:56] LABS: Hematocrit 48.1 % (41.0-53.0); Hemoglobin 16.3 g/dL (13.5-17.5); Mean Corpuscular Hemoglobin 32.4 pg (28.0-32.0); Mean Corpuscular Hgb Conc. 33.8 g/dL (32.0-36.0); Mean Corpuscular Volume 95.7 fL (80.0-100.0); Red Blood Cells 5.03 10^6/uL (4.5-5.90); White Blood Cell 10.9 10^3/uL (4.4-10.8)
[2021-03-02 05:59] LABS: Albumin 3.1 g/dL (3.4-5.0); Calcium 9.3 mg/dL (8.5-10.1); Potassium 4.3 mmol/L (3.5-5.1)
[2021-03-02] MEDS: SODIUM CHLORIDE 0.9% 1,000 ML IV SCH (06:00)
[2021-03-02 06:05] LABS: BUN/Creatinine Ratio 22.8; Bilirubin, Total 0.4 mg/dL (0.2-1.0); Total Protein 6.8 g/dL (6.4-8.2)
[2021-03-02 06:41] LABS: Basophils % (manual) 0 (0.0-2.0); Blast Cells 0; Eosinophils % (manual) 0 (0-7); Promyelocytes % 0; Reactive Lymphocytes 0
[2021-03-02] MEDS: cefTRIAXone 1GM/50ML D5W 50 ML IV SCH (08:43)
[2021-03-02] MEDS: ENOXAPARIN SOD 80 MG/0.8ML SYRINGE SC SCH ×3 (08:44→22:30)
[2021-03-02] MEDS: FAMOTIDINE (10MG/ML) 2ML VL IV SCH ×3 (08:44→22:30)
[2021-03-02 08:46] VITALS: BP 129/83
[2021-03-02 09:25] LABS: Band Neutrophils % (manual) 3; Lymphocytes % (manual) 16 (10.0-50.0); Metamyelocytes % 1; Monocytes % (manual) 9 (0-12); Myelocytes % 1
[2021-03-02 13:00] VITALS: BP 123/71
[2021-03-02] MEDS ORDERED: LOSA25TA38 PO (15:42)
[2021-03-02] MEDS ORDERED: OME20GT PO (15:42)
[2021-03-02] MEDS ORDERED: CLON0.1T PO (15:42)
[2021-03-02 17:00] VITALS: BP 123/81
[2021-03-02] MEDS: ACCU-CHEK COMFORT CURVE STRIP VI SCH ×2 (17:34→22:00)
[2021-03-02 22:00] VITALS: BP 135/98
[2021-03-03 05:00] VITALS: BP 131/78
[2021-03-03] MEDS: SODIUM CHLORIDE 0.9% 1,000 ML IV SCH (05:45)
[2021-03-03] MEDS: ACCU-CHEK COMFORT CURVE STRIP VI SCH ×4 (06:42→22:02)
[2021-03-03 09:00] VITALS: BP 149/98
[2021-03-03] MEDS: cefTRIAXone 1GM/50ML D5W 50 ML IV SCH (09:35)
[2021-03-03 12:38] VITALS: BP 145/93
[2021-03-03 22:00] VITALS: BP 142/92
[2021-03-03] MEDS: ENOXAPARIN SOD 80 MG/0.8ML SYRINGE SC SCH (22:02)
[2021-03-03] MEDS: FAMOTIDINE (10MG/ML) 2ML VL IV SCH (22:02)
[2021-03-04] MEDS: SODIUM CHLORIDE 0.9% 1,000 ML IV SCH ×2 (00:55→15:05)
[2021-03-04 05:00] VITALS: BP 149/96
[2021-03-04] MEDS: ACCU-CHEK COMFORT CURVE STRIP VI SCH ×4 (06:35→22:09)
[2021-03-04 09:00] VITALS: BP 153/73
[2021-03-04] MEDS: cefTRIAXone 1GM/50ML D5W 50 ML IV SCH (09:21)
[2021-03-04] MEDS: FAMOTIDINE (10MG/ML) 2ML VL IV SCH ×2 (09:51→22:08)
[2021-03-04] MEDS: ENOXAPARIN SOD 80 MG/0.8ML SYRINGE SC SCH ×2 (09:51→22:08)
[2021-03-04 13:00] VITALS: BP 150/91
[2021-03-04 16:55] VITALS: BP 132/97
[2021-03-04 22:00] VITALS: BP 138/88
[2021-03-05 05:00] VITALS: BP 147/107
[2021-03-05] MEDS: ACCU-CHEK COMFORT CURVE STRIP VI SCH ×2 (06:22→11:46)
[2021-03-05 09:00] VITALS: BP 154/93
[2021-03-05] MEDS: cefTRIAXone 1GM/50ML D5W 50 ML IV SCH (09:17)
[2021-03-05] MEDS: ENOXAPARIN SOD 80 MG/0.8ML SYRINGE SC SCH (09:33)
[2021-03-05] MEDS: FAMOTIDINE (10MG/ML) 2ML VL IV SCH (09:33)
[2021-03-05] MEDS ORDERED: APIXABAN 5 MG TAB PO SCH (11:15)
[2021-03-05 13:00] VITALS: BP 142/88
[2021-03-05 15:03] VITALS: BP 142/88
[2021-03-12] MEDS ORDERED: APIXABAN 5 MG TAB PO SCH (22:00)
== END 2021-03-05 17:05 | disposition home or self-care (01) | DRG 175 ==
LOC: ER 18:30 → TELE 03-01 03:49 → TELE-WESTW 03-01 17:35
PROVIDERS: ADMIT Nurse Practitioner Family; ATTEND Family Medicine
DX: I26.99 Other pulmonary embolism without acute cor pulmonale (principal); J96.01 Acute respiratory failure with hypoxia; E87.2 Acidosis; F17.210 Nicotine dependence, cigarettes, uncomplicated; Z20.822 Contact with and (suspected) exposure to COVID-19; I10 Essential (primary) hypertension; E11.65 Type 2 diabetes mellitus with hyperglycemia; Z86.718 Personal history of other venous thrombosis and embolism; Z90.49 Acquired absence of other specified parts of digestive tract; Z79.899 Other long term (current) drug therapy; Z79.84 Long term (current) use of oral hypoglycemic drugs
CPT/HCPCS: 36415; 71045; 71275; 80053; 81001; 82962; 83036; 83605; 83735; 83880; 84484; 85007; 85025; 85027; 85379; 85610; 85730; 87426; 93005; 93306; 93970; 96361; 96365; 96372; 96375; G0378; J0696; J3490

== ENCOUNTER 2021-05-14 08:51 | Inpatient (IN) | payer MEDICARE, MEDICAID ==
[~2021-05-14] VITALS: Ht 170.2 cm; Wt 78.0 kg
[~2021-05-14 08:51] MED LIST changes: -AMLO-489 PO; +ATOR20TA50 PO; -CLO01T PO; +CLON0.1T PO; -IBUP800T26 PO; -LOS25T PO; +LOSA25TA38 PO; +METF-869 PO; -METH500T22 PO; +OME20GT PO; -PANT40T PO; +TRAM50TA2 PO
[2021-05-14] MEDS ORDERED: MECLIZINE HCL 25 MG TAB PO ONE (09:30)
[2021-05-14] MEDS ORDERED: METOCLOPRAMIDE HCL 10 MG TAB PO ONE (09:30)
[2021-05-14 10:21] LABS: Basophils # (auto) 0.1 10 ^3/uL (0-0.2); Basophils % (auto) 0.8 % (0.0-2.0); Eosinophils # (auto) 0.2 10 ^3/uL (0-0.8); Eosinophils % (auto) 1.9 % (0.0-7.0); Hemoglobin 16.6 g/dL (13.5-17.5); Lymphocytes # (auto) 1.6 10 ^3/uL (0.4-5.4); Mean Corpuscular Hgb Conc. 33.2 g/dL (32.0-36.0); Mean Corpuscular Volume 96.3 fL (80.0-100.0); Monocytes # (auto) 1.3 10 ^3/uL (0-1.3); Monocytes % (auto) 11.5 % (0.0-12.0); Neutrophils # (auto) 8.3 10 ^3/uL (1.6-8.6); Neutrophils % (auto) 71.8 % (37.0-80.0); Nucleated Red Blood Cells % 0.1 %; Red Blood Cells 5.19 10^6/uL (4.5-5.90); Red Cell Distribution Width 14.3 % (11.8-14.3); White Blood Cell 11.5 10^3/uL (4.4-10.8)
[2021-05-14 10:37] LABS: Albumin 3.7 g/dL (3.4-5.0); Calcium 8.8 mg/dL (8.5-10.1); Potassium 4.4 mmol/L (3.5-5.1)
[2021-05-14 10:44] LABS: BUN/Creatinine Ratio 15.7; Bilirubin, Total 0.4 mg/dL (0.2-1.0); Total Protein 7.6 g/dL (6.4-8.2)
[2021-05-14] MEDS ORDERED: DEXTROSE (50%) 50ML SYRG IV PRN (23:00)
[2021-05-14] MEDS ORDERED: ONDANSETRON HCL 4 MG/2 ML VIAL IV PRN (23:00)
[2021-05-14] MEDS ORDERED: TEMAZEPAM 15 MG CAP PO PRN (23:00)
[2021-05-15] MEDS: GABAPENTIN 300 MG CAP PO SCH ×3 (06:34→22:34)
[2021-05-15] MEDS: InsuLIN REG 1unit/0.01ml Soln (100units/ml) SC SCH ×4 (06:49→22:00)
[2021-05-15] MEDS: ACCU-CHEK COMFORT CURVE STRIP VI SCH ×4 (06:49→21:50)
[2021-05-15] MEDS: LOSARTAN POTASSIUM 25 MG TAB PO SCH (09:24)
[2021-05-15] MEDS: ASPirin 81 mg TAB PO SCH (09:24)
[2021-05-15] MEDS ORDERED: ENOXAPARIN SOD 40 MG/0.4 ML SYRINGE SC SCH (10:00)
[2021-05-15] MEDS: ACETAMINOPHEN 325 MG TAB PO PRN (11:57)
[2021-05-15 13:20] LABS: BUN/Creatinine Ratio 14.4; Calcium 8.9 mg/dL (8.5-10.1); Potassium 4.3 mmol/L (3.5-5.1)
[2021-05-15 14:05] LABS: Basophils # (auto) 0 10 ^3/uL (0-0.2); Basophils % (auto) 0.1 % (0.0-2.0); Eosinophils # (auto) 0.1 10 ^3/uL (0-0.8); Eosinophils % (auto) 0.7 % (0.0-7.0); Hematocrit 51.2 % (41.0-53.0); Lymphocytes # (auto) 1.2 10 ^3/uL (0.4-5.4); Mean Corpuscular Hemoglobin 31.6 pg (28.0-32.0); Mean Corpuscular Hgb Conc. 33.1 g/dL (32.0-36.0); Mean Corpuscular Volume 95.4 fL (80.0-100.0); Monocytes # (auto) 1.5 10 ^3/uL (0-1.3); Monocytes % (auto) 12.1 % (0.0-12.0); Neutrophils # (auto) 9.6 10 ^3/uL (1.6-8.6); Neutrophils % (auto) 77.1 % (37.0-80.0); Red Blood Cells 5.37 10^6/uL (4.5-5.90); Red Cell Distribution Width 13.9 % (11.8-14.3); White Blood Cell 12.4 10^3/uL (4.4-10.8)
[2021-05-15] MEDS: HYDROcodone-ACET 5/325MG TAB PO PRN ×2 (16:38→22:34)
[2021-05-15 17:03] VITALS: BP 155/76
[2021-05-15] MEDS ORDERED: LORazepam 2MG/ML-1ML VIAL IV PRN (20:30)
[2021-05-15 22:00] VITALS: BP 121/85
[2021-05-15] MEDS ORDERED: ATORVASTATIN 20 MG TAB PO SCH (22:00)
[2021-05-16] MEDS ORDERED: KETOROLAC TROMETH 30 MG/ML 1ML VIAL IV ONE
[2021-05-16 05:00] VITALS: BP 172/105
[2021-05-16] MEDS: InsuLIN REG 1unit/0.01ml Soln (100units/ml) SC SCH ×4 (06:18→21:30)
[2021-05-16] MEDS: GABAPENTIN 300 MG CAP PO SCH ×3 (06:18→21:29)
[2021-05-16] MEDS: ACCU-CHEK COMFORT CURVE STRIP VI SCH ×4 (06:20→21:29)
[2021-05-16] MEDS: ASPirin 81 mg TAB PO SCH (10:55)
[2021-05-16] MEDS: LOSARTAN POTASSIUM 25 MG TAB PO SCH (10:58)
[2021-05-16] MEDS: HYDROcodone-ACET 5/325MG TAB PO PRN ×2 (11:16→23:22)
[2021-05-16] MEDS: MECLIZINE HCL 25 MG TAB PO PRN (14:24)
[2021-05-16] MEDS ORDERED: LACTULOSE 20Gm/30ML SOLN PO ONE (17:45)
[2021-05-16] MEDS ORDERED: hydrALAZINE HCL 20 MG/ML VL IV ONE (17:45)
[2021-05-16] MEDS ORDERED: hydrALAZINE HCL 25 MG TAB PO ONE (21:15)
[2021-05-16] MEDS: ATORVASTATIN 20 MG TAB PO SCH (21:29)
[2021-05-16] MEDS: APIXABAN 5 MG TAB PO SCH (21:29)
[2021-05-16 21:34] LABS: Cholesterol 99 mg/dL (< 200)
[2021-05-16 21:36] LABS: HDL Cholesterol 50 mg/dL (40-59); LDL Cholesterol 36 mg/dL (< 100); Triglycerides 94 mg/dL (< 150)
[2021-05-16 22:00] VITALS: BP 157/100
[2021-05-17] MEDS ORDERED: hydrALAZINE HCL 25 MG TAB PO PRN
[2021-05-17] MEDS ORDERED: hydrALAZINE HCL 20 MG/ML VL IV PRN
[2021-05-17] MEDS ORDERED: LACTULOSE 20Gm/30ML SOLN PO PRN
[2021-05-17] MEDS: ACETAMINOPHEN 325 MG TAB PO PRN (02:34)
[2021-05-17 05:00] VITALS: BP 140/81
[2021-05-17] MEDS: GABAPENTIN 300 MG CAP PO SCH ×3 (06:09→22:23)
[2021-05-17] MEDS: ACCU-CHEK COMFORT CURVE STRIP VI SCH ×4 (06:10→22:23)
[2021-05-17] MEDS: InsuLIN REG 1unit/0.01ml Soln (100units/ml) SC SCH ×4 (06:10→22:00)
[2021-05-17] MEDS: APIXABAN 5 MG TAB PO SCH ×2 (09:52→22:22)
[2021-05-17] MEDS: ASPirin 81 mg TAB PO SCH (09:52)
[2021-05-17] MEDS: LOSARTAN POTASSIUM 25 MG TAB PO SCH (09:52)
[2021-05-17] MEDS: HYDROcodone-ACET 5/325MG TAB PO PRN ×2 (09:55→20:52)
[2021-05-17] MEDS: MECLIZINE HCL 25 MG TAB PO PRN (09:55)
[2021-05-17 13:00] VITALS: BP 142/90
[2021-05-17 17:00] VITALS: BP 148/101
[2021-05-17 22:00] VITALS: BP 131/73
[2021-05-17] MEDS: ATORVASTATIN 20 MG TAB PO SCH (22:23)
[2021-05-18] MEDS: HYDROcodone-ACET 5/325MG TAB PO PRN ×3 (03:12→17:48)
[2021-05-18 05:42] VITALS: BP 136/78
[2021-05-18] MEDS: ACCU-CHEK COMFORT CURVE STRIP VI SCH ×4 (06:26→21:45)
[2021-05-18] MEDS: InsuLIN REG 1unit/0.01ml Soln (100units/ml) SC SCH ×4 (06:26→21:52)
[2021-05-18] MEDS: GABAPENTIN 300 MG CAP PO SCH ×3 (06:26→21:43)
[2021-05-18 09:01] VITALS: BP 152/101
[2021-05-18] MEDS: LOSARTAN POTASSIUM 25 MG TAB PO SCH (10:00)
[2021-05-18] MEDS: ASPirin 81 mg TAB PO SCH (10:00)
[2021-05-18] MEDS: APIXABAN 5 MG TAB PO SCH ×2 (10:00→21:41)
[2021-05-18] MEDS ORDERED: IOHEXOL 350 MG/ML 100ML IJ ONE (11:06)
[2021-05-18 13:00] VITALS: BP 143/102
[2021-05-18 16:31] VITALS: BP 137/83
[2021-05-18] MEDS: ATORVASTATIN 20 MG TAB PO SCH (21:42)
[2021-05-18 22:17] VITALS: BP 136/81
[2021-05-19 05:55] VITALS: BP 134/97
[2021-05-19] MEDS: ACCU-CHEK COMFORT CURVE STRIP VI SCH ×2 (06:42→11:30)
[2021-05-19] MEDS: GABAPENTIN 300 MG CAP PO SCH ×2 (06:42→13:50)
[2021-05-19] MEDS: InsuLIN REG 1unit/0.01ml Soln (100units/ml) SC SCH ×2 (06:43→11:30)
[2021-05-19] MEDS: HYDROcodone-ACET 5/325MG TAB PO PRN ×2 (08:23→14:33)
[2021-05-19] MEDS: APIXABAN 5 MG TAB PO SCH (09:36)
[2021-05-19] MEDS: ASPirin 81 mg TAB PO SCH (09:36)
[2021-05-19] MEDS: LOSARTAN POTASSIUM 25 MG TAB PO SCH (09:36)
[2021-05-19 13:25] VITALS: BP 135/88
[2021-05-19 17:14] VITALS: BP 139/99
== END 2021-05-19 16:20 | disposition home or self-care (01) | DRG 149 ==
LOC: ER 08:51 → WEST WING 14:08 → OVERFLOW 22:48 → WEST WING 05-15 14:05
PROVIDERS: ADMIT Nurse Practitioner; ATTEND Family Medicine
DX: H81.10 Benign paroxysmal vertigo, unspecified ear (principal); E11.42 Type 2 diabetes mellitus with diabetic polyneuropathy; I10 Essential (primary) hypertension; G89.29 Other chronic pain; M79.641 Pain in right hand; M79.89 Other specified soft tissue disorders; Z20.822 Contact with and (suspected) exposure to COVID-19; E78.00 Pure hypercholesterolemia, unspecified; Z86.711 Personal history of pulmonary embolism; Z79.01 Long term (current) use of anticoagulants; Z79.899 Other long term (current) drug therapy; Z90.49 Acquired absence of other specified parts of digestive tract
CPT/HCPCS: 36415; 70450; 70551; 71275; 72141; 73110; 73130; 73221; 80048; 80053; 80061; 82962; 84484; 84550; 85025; 87426; 93005; 93886; 99291; G0378; J1815; J1885

== ENCOUNTER → 2021-05-28 | Outpatient (CLI) | payer MEDICARE, MEDICAID ==
[2021-05-28 12:33] LABS: Albumin 3.8 g/dL (3.4-5.0); Calcium 9.1 mg/dL (8.5-10.1); Potassium 4.9 mmol/L (3.5-5.1)
[2021-05-28 12:38] LABS: BUN/Creatinine Ratio 17.8; Bilirubin, Total 0.4 mg/dL (0.2-1.0); Total Protein 7.3 g/dL (6.4-8.2)
== END | disposition home or self-care (01) ==
LOC: LAB 11:36
PROVIDERS: ATTEND Internal Medicine Pulmonary Disease
DX: I27.82 Chronic pulmonary embolism (principal)
CPT/HCPCS: 36415; 80053

== ENCOUNTER → 2021-09-30 | Outpatient (CLI) | payer MEDICARE, MEDICAID ==
[2021-09-30 12:06] LABS: Albumin 3.7 g/dL (3.4-5.0); BUN/Creatinine Ratio 17.4; Calcium 9.6 mg/dL (8.5-10.1); Potassium 5.1 mmol/L (3.5-5.1)
[2021-09-30 12:09] LABS: Bilirubin, Total 0.7 mg/dL (0.2-1.0); Total Protein 7.8 g/dL (6.4-8.2)
== END | disposition home or self-care (01) ==
LOC: LAB 11:19
PROVIDERS: ATTEND Internal Medicine Pulmonary Disease
DX: I27.82 Chronic pulmonary embolism (principal)
CPT/HCPCS: 36415; 80053